=== PATIENT | male | born 1980 | race African-American/Black ===

== ENCOUNTER 2019-05-06 20:49 | Inpatient (IN) | payer OTHER ==
[2019-05-06] MEDS ORDERED: FOLIC ACID INJECTION - 1 MG, THIAMINE HCL 100 MG, MULTIVIT INJECTION ADULT 10 ML in SOD... IVPB ONE (20:59)
[2019-05-06] MEDS ORDERED: SODIUM CHLORIDE 0.9% 500 ML INFUS.BAG IV ONE ×2 (20:59→23:22)
--- NOTE | 2019-05-06 21:09 | PDOC ---
History of Present Illness <Gaye Haile - Last Filed: 05/06/19 22:39> - General History Source: Patient Exam Limitations: No Limitations - History of Present Illness Initial Comments: Jaspreet Bautista is a 38 yo M who presents to the ER after he overdosed on 18 pills of 0.5 mg haloperidol and thirty 25 mg pills of benadryl. The patient is altered and confused. He comes in and out of consciousness. He states that he was very sad before and tried to kill himself by ingesting all of those pills. He now states he is sad and wants to have his stomach pumped because he realizes what he did was stupid. The patient is not able to provide much history. <Umberto Elias - Last Filed: 05/07/19 01:25> - General Chief Complaint: Overdose Stated Complaint: OVERDOSE Time Seen by Provider: 05/06/19 20:58 Past History <Gaye Haile - Last Filed: 05/06/19 22:39> - Immunization History Immunization Up to Date: Yes - Psycho Social/Smoking Cessation Hx Smoking History: Current every day smoker Have you smoked in the past 12 months: Yes Number of Cigarettes Smoked Daily: 4 Cigars Per Day: 0 Hx Alcohol Use: No Drug/Substance Use Hx: No <Umberto Elias - Last Filed: 05/07/19 01:25> - Past Medical History Allergies/Adverse Reactions: Allergies Allergy/AdvReac Type Severity Reaction Status Date / Time No Known Allergies Allergy Verified 12/25/15 04:01 Home Medications: Ambulatory Orders Ascorbate Calcium [Vitamin C] 500 mg PO DAILY 12/25/15 Ciprofloxacin [Cipro -] 500 mg PO Q12H #10 tablet 12/25/15 Gabapentin [Neurontin] 600 mg PO TID 12/25/15 HYDROmorphone [Dilaudid -] 2 mg PO Q4H PRN 12/25/15 Haloperidol [Haldol -] 5 mg PO BID 12/25/15 Magnesium Oxide [Mag-Ox -] 400 mg PO BID 12/25/15 Melatonin 5 mg PO HS 12/25/15 Ranitidine [Zantac -] 300 mg PO HS 12/25/15 Thiamine HCl [B-1] 100 mg PO DAILY 12/25/15 Review of Systems - Review of Systems Able to Perform ROS?: No (AMS) <Umberto Elias - Last Filed: 05/07/19 01:25> *Physical Exam - Vital Signs Last Vital Signs Temp Pulse Resp BP Pulse Ox 98.1 F 98 H 24 H 00/00 L 99 05/06/19 21:01 05/06/19 22:15 05/06/19 22:15 05/06/19 22:15 05/06/19 22:15 <HaileGaye - Last Filed: 05/06/19 22:39> - Vital Signs Last Vital Signs Temp Pulse Resp BP Pulse Ox 98.1 F 100 H 14 124/85 98 05/06/19 21:01 05/06/19 21:01 05/06/19 21:01 05/06/19 21:01 05/06/19 21:01 - Physical Exam General Appearance: Yes: Apparent Distress, Moderate Distress, Intoxicated, Thin , Other (Skin is dry and hot. ) HEENT: positive: EOMI, JOSE, Other (Pupils are dilated. Face is flushed. Forehead feels warm. Dry mucous membranes. ). negative: Normal ENT Inspection, Excessive drooling Neck: positive: Trachea midline, Supple Respiratory/Chest: positive: Lungs Clear, Normal Breath Sounds Cardiovascular: positive: S1, S2, Tachycardia Vascular Pulses: Dorsalis-Pedis (R): 2+, Doralis-Pedis (L): 2+ Comments:: Patient has multiple toes amputated on right foot Gastrointestinal/Abdominal: positive: Other (Hypoactive bowel sounds). negative : Increased Bowel Sounds Male Genitalia: positive: other (Urostomy bag + Gastrostomy bag) Rectal Exam: positive: deferred Musculoskeletal: positive: Decreased Range of Motion Extremity: negative: Normal Inspection, Normal Range of Motion Integumentary: positive: Dry, Warm Neurologic: positive: Confused, Disoriented, Depressed Affect. negative: Fully Oriented, Alert, Normal Mood/Affect <Umberto Elias - Last Filed: 05/07/19 01:25> ED Treatment Course - LABORATORY CBC & Chemistry Diagram: 05/06/19 22:00 05/06/19 22:00 - ADDITIONAL ORDERS Additional order review: Laboratory Results 05/06/19 05/06/19 05/06/19 22:00 22:00 22:00 PT with INR 11.90 INR 1.01 Urine Color [place] Urine Appearance Turbid Urine pH 8.0 Ur Specific [place] 1.005 L Urine Protein 2+ H Urine Glucose (UA) Negative Urine Ketones Negative Urine Blood 2+ H Urine Nitrite Positive H Urine Bilirubin Negative Urine Urobilinogen 0.2 Ur Leukocyte Esterase 3+ H Urine WBC (Auto) 139 Urine Casts (Auto) 53 U Epithel Cells (Auto) 2.6 Urine Bacteria (Auto) 1234.2 Opiates Screen Negative Methadone Screen Negative Barbiturate Screen Negative Phencyclidine Screen Positive A* Ur Amphetamines Screen Negative MDMA (Ecstasy) Screen Negative Benzodiazepines Screen Negative Cocaine Screen Negative U Marijuana (THC) Screen Positive A* 05/06/19 22:00 RBC 4.01 MCV 84.3 MCHC 33.3 RDW 19.0 H MPV 7.6 Neutrophils % 45.6 D Lymphocytes % 36.6 D Monocytes % 15.5 H D Eosinophils % 2.0 D Basophils % 0.3 - Medications Given in the ED: ED Medications Discontinued Medications Generic Name Dose Route Start Last Admin Trade Name Emeka PRN Reason Stop Dose Admin Sodium Chloride 1,000 ml 05/06/19 20:59 05/06/19 22:13 Normal Saline - IV 05/06/19 21:00 1,000 ml ONCE ONE Administration <Gaye Haile - Last Filed: 05/06/19 22:39> - LABORATORY CBC & Chemistry Diagram: 05/06/19 22:00 05/06/19 22:00 <Umberto Elias - Last Filed: 05/07/19 01:25> Medical Decision Making - Medical Decision Making Jaspreet Bautista is a 38 yo M who presents to the ER after he overdosed on 18 pills of 0.5 mg haloperidol and thirty 25 mg pills of benadryl. The patient is altered and confused. He comes in and out of consciousness. He states that he was very sad before and tried to kill himself by ingesting all of those pills. He now states he is sad and wants to have his stomach pumped because he realizes what he did was stupid. The patient is not able to provide much history. Vital Signs Temp Pulse Resp BP Pulse Ox 98.1 F 98 H 24 H 00/00 L 99 05/06/19 21:01 05/06/19 22:15 05/06/19 22:15 05/06/19 22:15 05/06/19 22:15 MDM: Patient overdosed on benadryl and haloperidol. Interestingly he pre- emptively treated dystonic reactions with benadryl. Unfortunately he is exhibiting classic signs of an anti-cholinergic overdose from too much benadryl. Patient is delirius, has large pupils, red skin, is flushed and not sweating, has dry mucous membranes, decreased bowel sounds, and is becoming more and more tachycardic. Consult [facility] Poison control center: Reccomendations 1) supportive care 2) if agitated or confused => benzos - We have started giving 2 mg ativan 3) cool if hyperthermic 4) Physostigmine can cause seizures and lowers seizure threshold TRY TO AVOID Plan: Labs, Urine/utox, EKG, cardiac monitoring, IV hydration, benzos, admit to telemtry U-tox is positive for PCP - I suspect this is a false positive as a result of taking too much benadryl Re-assessment: Patient started becoming more tachycardic to the mid 120's and then started tensing his arms and legs likely having a dystonic reaction. It appears the patient is experiencing a dystonic reaction from the haloperidol overdose. The patient has been altered since his overdose and started vomiting. His oxygen saturation went down to the low 80's. It was evident that the patient aspirated and could no longer protect his airway. We decided to intubate the patient and put him on a midazolam drip. - 20 of etomidate and 50 of rocuronium used for RSI - Versed drip for sedation 2nd EKG: Sinus tachycardia to rate of 114. QTc not prolonged. Disposition: Admit to ICU - Spoke with ICU resident who is aware of the situation and will follow the patient. <Umberto Elias - Last Filed: 05/07/19 01:25> Discharge - Discharge Information Problems reviewed: Yes - Admission Yes <Gaye Haile - Last Filed: 05/06/19 22:39> <Umberto Elias - Last Filed: 05/07/19 01:25> - Discharge Information Clinical Impression/Diagnosis: Overdose, Suicidal behavior, Polysubstance abuse UTI (urinary tract infection) Qualifiers: Urinary tract infection type: catheter-associated UTI Encounter type: initial encounter Qualified Code(s): T83.51XA - Infection and inflammatory reaction due to indwelling urinary catheter, initial encounter Condition: Guarded
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
[2019-05-06 22:17] LABS: BASO % 0.3 % (0-2.0); HEMATOCRIT 33.8 % (35.4-49); HEMOGLOBIN 11.2 GM/dL (11.7-16.9); LYMPH % 36.6 % (8-40); MCHC 33.3 g/dl (32.0-35.9); MEAN CELL VOLUME 84.3 fl (80-96); MEAN PLT VOLUME 7.6 fl (7.5-11.1); MONO % 15.5 % (3.8-10.2); NEUT % 45.6 % (42.8-82.8); PLATELET COUNT 428 K/MM3 (134-434); RBC 4.01 M/mm3 (4.00-5.60); WHITE BLOOD COUNT 6.4 K/mm3 (4.0-10.0)
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
[2019-05-06 22:25] LABS: EPI CELLS 2.6 /HPF (0-5/HPF); HYALINE CASTS 53 /lpf (0-8); URINE APPEARANCE TURBID; URINE BACTERIA 1234.2 /hpf (NEGATIVE); URINE BILIRUBIN NEGATIVE (NEGATIVE); URINE COLOR ORANGE; URINE GLUCOSE (UA) NEGATIVE (NEGATIVE); URINE KETONE NEGATIVE (NEGATIVE); URINE LEUK ESTERASE 3+ (NEGATIVE); URINE NITRITE POSITIVE (NEGATIVE); URINE PROTEIN 2+ (NEGATIVE); URINE UROBILINOGEN 0.2 mg/dL (0.2-1.0); URINE WBC 139 /hpf (0-5)
[2019-05-06] MEDS ORDERED: CEFTRIAXONE 1 GM in DEXTROSE 5%-WATER - 50 ML IVPB ONE (22:25)
[2019-05-06 22:30] LABS: INR 1.01 (0.83-1.09); PROTHROMBIN TIME (PATIENT) 11.9 SEC (9.7-13.0)
[2019-05-06] MEDS ORDERED: LORazepam 2 MG/ML SDV VIAL ONE ×4 (22:30→23:59)
[2019-05-06] MEDS ORDERED: CEFTRIAXONE 1 GM/50 ML BAG ONE (22:30)
[2019-05-06 22:36] LABS: COCAINE, UR NEGATIVE ng/ml (CUTOFF=300); METHADONE, UR NEGATIVE ng/ml (CUTOFF=300); OPIATES, URI NEGATIVE ng/ml (CUTOFF=300); URINE AMPHETAMINES NEGATIVE ng/ml (CUTOFF=500); URINE BARBITURATES NEGATIVE ng/ml (CUTOFF=200); URINE BENZODIAZEPINES NEGATIVE ng/ml (CUTOFF=200)
[2019-05-06 22:39] LABS: PHENCYCLIDINE,URINE POSITIVE ng/ml (CUTOFF=25)
[2019-05-06 22:41] LABS: URINE RBC 0-4 /hpf (0-4); YEAST NEGATIVE (NEGATIVE)
[2019-05-06 22:49] LABS: ALBUMIN 3.5 g/dl (3.4-5.0); BILIRUBIN,TOTAL 0.4 mg/dL (0.2-1); BLOOD UREA NITROGEN 11.7 mg/dL (7-18); CALCIUM 8.9 mg/dL (8.5-10.1); CREATININE 1.2 mg/dL (0.55-1.3); TOT PROT 7.8 g/dl (6.4-8.2)
[2019-05-06] MEDS ORDERED: BENZTROPINE MESYLATE 2 MG/2 ML INJECTION IM ONE (23:30)
[2019-05-06] MEDS ORDERED: RAPID SEQUENCE INTUBATION KIT NR ONE ×2 (23:46→23:57)
[2019-05-07] MEDS ORDERED: MIDAZOLAM IN 0.9 % SOD.CHLORID 100 MG/100 ML PLAST..BAG IVPB SCH (00:15)
[2019-05-07] MEDS ORDERED: MIDAZOLAM IN 0.9 % SOD.CHLORID 1 MG/1 ML PLAST..BAG ONE ×2 (00:16→08:16)
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
[2019-05-07] MEDS ORDERED: ROCURONIUM BROMIDE 50 MG/5 ML VIAL IV ONE (00:18)
[2019-05-07] MEDS ORDERED: ETOMIDATE 40 MG/20 ML VIAL IVPUSH ONE (00:18)
[2019-05-07] MEDS ORDERED: MIDAZOLAM 100 MG in SODIUM CHLORIDE 100 ML IVPB SCH (00:30)
[2019-05-07 02:31] LABS: ARTERIAL BLD GAS O2 SATURATION 97.8 % (95-98); ARTERIAL BLOOD GAS BASE EXCESS -2.8 meq/l (-2-2); ARTERIAL BLOOD GAS PCO2 52.6 mmHg (35-45); ARTERIAL BLOOD GAS pH 7.28 (7.35-7.45)
[2019-05-07 02:35] LABS: ALLENS TEST POSITIVE; ARTERIAL BLOOD GAS PO2 205 mmHg (80-100)
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
[2019-05-07] MEDS ORDERED: PIPERACILLIN/TAZOB 4.5 GM 4.5 GM in DEXTROSE 5%-WATER 100 ML IVPB SCH (03:00)
[2019-05-07] MEDS: PROPOFOL 1,000,000 MCG/100 ML VIAL IVPB SCH (03:00)
[2019-05-07] MEDS ORDERED: SODIUM CHLORIDE 1,000 ML IV SCH (03:30)
[2019-05-07 03:38] LABS: PHOSPHOROUS 5.3 mg/dL (2.5-4.9)
[2019-05-07] MEDS ORDERED: fentaNYL CITRATE 250 MCG/5 ML VIAL ONE (06:06)
[2019-05-07] MEDS ORDERED: FENTANYL INJECTION 500 MCG in DEXTROSE 5%-WATER - 90 ML IVPB SCH (06:15)
[2019-05-07] MEDS ORDERED: PIPERACILLIN/TAZOBACTAM 4.5 GM VIAL IVPB ONE ×2 (06:29→08:17)
[2019-05-07] MEDS ORDERED: DEXTROSE 5%-WATER - 50 ML IVPB ONE ×2 (06:29→08:17)
[2019-05-07] MEDS: THIAMINE HCL 200 MG/2 ML VIAL IVPB SCH ×3 (06:31→17:40)
[2019-05-07] MEDS: FENTANYL INJECTION 500 MCG in DEXTROSE 5%-WATER - 90 ML IVPB SCH (06:32)
[2019-05-07] MEDS: LACTATED RINGERS SOLUTION 1,000 ML/1,000 ML INFUS.BAG IV SCH (06:33)
[2019-05-07] MEDS: PIPERACILLIN/TAZOB 4.5 GM 4.5 GM in DEXTROSE 5%-WATER - 50 ML IVPB SCH ×2 (06:33→08:19)
[2019-05-07 07:29] LABS: BASO % 0.2 % (0-2.0); EOS % 0.1 % (0-4.5); HEMATOCRIT 30.4 % (35.4-49); HEMOGLOBIN 9.8 GM/dL (11.7-16.9); MCH 27.5 pg (25.7-33.7); MCHC 32.4 g/dl (32.0-35.9); MEAN CELL VOLUME 84.9 fl (80-96); MEAN PLT VOLUME 7.5 fl (7.5-11.1); NEUT % 87.7 % (42.8-82.8); PLATELET COUNT 360 K/MM3 (134-434); RBC 3.58 M/mm3 (4.00-5.60); RDW 18.9 % (11.9-15.9); WHITE BLOOD COUNT 24.1 K/mm3 (4.0-10.0)
[2019-05-07 07:46] LABS: BILIRUBIN,TOTAL 0.4 mg/dL (0.2-1); BLOOD UREA NITROGEN 9.7 mg/dL (7-18); CALCIUM 8.2 mg/dL (8.5-10.1); POTASSIUM 3.9 mmol/L (3.5-5.1); TOT PROT 6.4 g/dl (6.4-8.2)
[2019-05-07 08:44] LABS: ALLENS TEST POSITIVE
[2019-05-07 08:49] LABS: ARTERIAL BLD GAS O2 SATURATION 98.6 % (95-98); ARTERIAL BLOOD GAS BASE EXCESS 0.4 meq/l (-2-2); ARTERIAL BLOOD GAS PCO2 41.1 mmHg (35-45); ARTERIAL BLOOD GAS PO2 463 mmHg (80-100)
[2019-05-07] MEDS ORDERED: PT OWN MED DRAWER 7, Y5N ONE (09:42)
[2019-05-07 09:51] LABS: OVALOCYTE 1+; PLATELET ESTIMATE ADEQUATE
[2019-05-07] MEDS ORDERED: PANTOPRAZOLE SODIUM 40 MG VIAL IVPUSH SCH (10:00)
[2019-05-07] MEDS ORDERED: ENOXAPARIN NA (PORCINE) 40 MG/0.4 ML DISP.SYRIN SQ SCH (10:15)
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
--- NOTE | 2019-05-07 10:41 | PN ---
Teaching Attending Note Name of Resident: Antoine Moses ATTENDING PHYSICIAN STATEMENT I saw and evaluated the patient. I reviewed the resident's note and discussed the case with the resident. I agree with the resident's findings and plan as documented. SUBJECTIVE: Pt seen and examined in the ICU. Remains intubated, sedated on propofol, versed and fentanyl gtts. OBJECTIVE: Vital Signs Period Temp Pulse Resp BP Sys/Neff Pulse Ox Last 24 Hr 97.5 F-98.1 F 98-122 12-39 00-157/00-117 98-100 Intake & Output 05/04/19 05/05/19 05/06/19 05/07/19 23:59 23:59 23:59 23:59 Output Total 1100 Balance -1100 Weight 68.039 kg 59.1 kg Gen: intubated, sedated Heart: RRR Lung: decreased breath sounds at the bases Abd: soft, nontender, +ostomy, nephrostomy Ext: no edema CBC, BMP 05/07/19 06:10 05/07/19 06:10 Active Medications Chlorhexidine Gluconate (Hibiclens For Decolonization -) 1 applic TP HS MELISSA Enoxaparin Sodium (Lovenox -) 40 mg SQ DAILY MELISSA Midazolam HCl 100 mg/ Sodium (Chloride) 100 mls @ 10 mls/hr IVPB TITR MELISSA; Protocol Stop: 05/08/19 00:29 Last Admin: 05/07/19 00:41 Dose: 10 mg/hr, 10 mls/hr Piperacillin Sod/Tazobactam (Sod 4.5 gm/ Dextrose) 50 mls @ 100 mls/hr IVPB Q6H -IV MELISSA Stop: 05/07/19 21:29 Last Admin: 05/07/19 08:19 Dose: 100 mls/hr Propofol (Diprivan -) 1,000,000 mcg in 100 mls @ 2.041 mls/hr IVPB TITR MELISSA; Protocol Last Titration: 05/07/19 06:37 Dose: 50 mcg/kg/min, 20.412 mls/hr Lactated Ringer's (Lactated Ringers Solution) 1,000 ml in 1,000 mls @ 150 mls/ hr IV ASDIR MELISSA Last Admin: 05/07/19 06:33 Dose: 150 mls/hr Fentanyl 500 mcg/ Dextrose 100 mls @ 2 mls/hr IVPB TITR MELISSA; Protocol Last Admin: 05/07/19 06:32 Dose: 25 mcg/hr, 5 mls/hr Mupirocin (Bactroban Ointment (For Decolonization) -) 1 applic NS BID [facility] Stop: 05/12/19 09:59 Pantoprazole Sodium (Protonix Iv) 40 mg IVPUSH DAILY [facility] Last Admin: 05/07/19 09:39 Dose: 40 mg Thiamine HCl (Vitamin B1 Injection -) 200 mg IVPB Q8H-IV MELISSA Last Admin: 05/07/19 09:50 Dose: 200 mg ASSESSMENT AND PLAN: Drug Overdose Suicide Attempt Acute Respiratory Failure UTI Anemia - monitor EKG/QTc - IVF - trend CPK - continue antibiotics - f/u cultures - hold sedation to assess mental status - spontaneous breathing trials as tolerated when mental status improved - DVT prophylaxis - continue ICU monitoring critical care time spent in reviewing chart, evaluating patient and formulating plan 35 min
--- NOTE | 2019-05-07 12:08 | PN ---
Progress Note (short form) - Note Progress Note: ID CONSULT DICTATED RESP FAILURE S/P DRUG OVERDOSE PROBABLE ASPIRATION LEUKOCYTOSIS R/O SEPSIS UTI S/P PERCUTANEOUS NEPHROSTOMY ?? OBSTRUCTIVE UROPATHY PARAPLEGIA AWAIT C/S EMPIRIC CEFTRIAXONE
--- NOTE | 2019-05-07 13:40 | CON.PSY ---
Psychiatry Consult Chief Complaint: 38 Year old Male admitted thru ER for acute overdose of Psych meds. Patient is intubated at this time. Unablke to engage in any conversation. - Previous Psychiatric Treatment Outpatient: Less than 6 mos ago Inpatient: None - Previous Substance Abuse Treatment Outpatient: None Inpatient: None - Reason for Previous Treatment Reason for Previous Treatment: Major Depression - Current Medications Current Medications: Active Medications Chlorhexidine Gluconate (Hibiclens For Decolonization -) 1 applic TP HS MELISSA Enoxaparin Sodium (Lovenox -) 40 mg SQ DAILY MELISSA Midazolam HCl 100 mg/ Sodium (Chloride) 100 mls @ 10 mls/hr IVPB TITR MELISSA; Protocol Stop: 05/08/19 00:29 Last Admin: 05/07/19 00:41 Dose: 10 mg/hr, 10 mls/hr Propofol (Diprivan -) 1,000,000 mcg in 100 mls @ 2.041 mls/hr IVPB TITR MELISSA; Protocol Last Titration: 05/07/19 06:37 Dose: 50 mcg/kg/min, 20.412 mls/hr Lactated Ringer's (Lactated Ringers Solution) 1,000 ml in 1,000 mls @ 150 mls/ hr IV ASDIR MELISSA Last Admin: 05/07/19 06:33 Dose: 150 mls/hr Fentanyl 500 mcg/ Dextrose 100 mls @ 2 mls/hr IVPB TITR MELISSA; Protocol Last Admin: 05/07/19 06:32 Dose: 25 mcg/hr, 5 mls/hr Ceftriaxone Sodium 2 gm/ (Dextrose) 100 mls @ 200 mls/hr IVPB DAILY MELISSA; Protocol Mupirocin (Bactroban Ointment (For Decolonization) -) 1 applic NS BID MELISSA Stop: 05/12/19 09:59 Pantoprazole Sodium (Protonix Iv) 40 mg IVPUSH DAILY MELISSA Last Admin: 05/07/19 09:39 Dose: 40 mg Thiamine HCl (Vitamin B1 Injection -) 200 mg IVPB Q8H-IV MELISSA Last Admin: 05/07/19 09:50 Dose: 200 mg - Allergies Allergies: Allergies Allergy/AdvReac Type Severity Reaction Status Date / Time No Known Allergies Allergy Verified 12/25/15 04:01 - Current Living Status Usual Living Arrangement: Alone - Current Mental Status Evaluation Appearance: Disheveled Attitude: Other - Affect Affect: Other - Speech/Language Expressive: Incoherent - Psychomotor Activity Psychomotor Activity: Slowed - Cognition Attention: Diminished Memory, Short Term: 0/3 Memory, Remote with Promptin/3 - Concentration Serial Sevens Intact: No Simple Calculations Intact: No - Abstraction Proverb Interpretation: Impaired Judgement: Moderately Impaired - Insight Insight: Impaired - Impulse Control Impulse Control: Moderately Impaired - Suicidal Ideation Suicidal Ideation: Yes (severe drug overdose.) - Homicidal Ideation Homicidal Ideation: No Assessment/Plan 1) continue with 1:1. 2) Patient might need In Patient Psych admission when medically stable.
[2019-05-07] MEDS ORDERED: DEXTROSE 5%-WATER 100 ML IVPB ONE (14:21)
[2019-05-07] MEDS: CEFTRIAXONE 2 GM in DEXTROSE 5%-WATER 100 ML IVPB SCH (14:29)
[2019-05-07] MEDS: MUPIROCIN 2% TOPICAL OINTMENT FOR DECOLONIZATION NS SCH ×2 (14:29→23:42)
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
--- NOTE | 2019-05-07 16:45 | EKG ---
Test Reason : Blood Pressure : / mmHG Vent. Rate : 091 BPM Atrial Rate : 091 BPM P-R Int : 116 ms QRS Dur : 080 ms QT Int : 392 ms P-R-T Axes : 078 032 039 degrees QTc Int : 482 ms NORMAL SINUS RHYTHM PROLONGED QT ABNORMAL ECG WHEN COMPARED WITH ECG OF 07-MAY-2019 03:39, NO SIGNIFICANT CHANGE WAS FOUND Confirmed by ROMAN FLORES MD ([id number]) on 05/07/2019 4:44:57 PM Referred By: Heriberto BAILEY Confirmed By:ROMAN FLORES MD
--- NOTE | 2019-05-07 16:47 | EKG ---
Test Reason : Blood Pressure : / mmHG Vent. Rate : 120 BPM Atrial Rate : 120 BPM P-R Int : 116 ms QRS Dur : 068 ms QT Int : 350 ms P-R-T Axes : 080 063 038 degrees QTc Int : 494 ms SINUS TACHYCARDIA OTHERWISE NORMAL ECG WHEN COMPARED WITH ECG OF 07-MAY-2019 00:20, NO SIGNIFICANT CHANGE WAS FOUND Confirmed by ROMAN FLORES MD ([id number]) on 05/07/2019 4:47:11 PM Referred By: Confirmed By:ROMAN FLORES MD
--- NOTE | 2019-05-07 16:48 | EKG ---
Test Reason : Blood Pressure : / mmHG Vent. Rate : 114 BPM Atrial Rate : 114 BPM P-R Int : 134 ms QRS Dur : 084 ms QT Int : 362 ms P-R-T Axes : 083 066 053 degrees QTc Int : 498 ms SINUS TACHYCARDIA MODERATE VOLTAGE CRITERIA FOR LVH, MAY BE NORMAL VARIANT BORDERLINE ECG WHEN COMPARED WITH ECG OF 06-MAY-2019 21:27, Confirmed by ROMAN FLORES MD ([id number]) on 05/07/2019 4:47:39 PM Referred By: Confirmed By:ROMAN FLORES MD
--- NOTE | 2019-05-07 16:48 | EKG ---
Test Reason : Blood Pressure : / mmHG Vent. Rate : 108 BPM Atrial Rate : 108 BPM P-R Int : 122 ms QRS Dur : 080 ms QT Int : 362 ms P-R-T Axes : 075 061 046 degrees QTc Int : 485 ms SINUS TACHYCARDIA POSSIBLE LEFT ATRIAL ENLARGEMENT BORDERLINE ECG NO PREVIOUS ECGS AVAILABLE Confirmed by ROMAN FLORES MD ([id number]) on 05/07/2019 4:48:05 PM Referred By: Confirmed By:ROMAN FLORES MD
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
[2019-05-07 19:42] LABS: BASO % 0.3 % (0-2.0); EOS % 0.2 % (0-4.5); HEMATOCRIT 31.3 % (35.4-49); HEMOGLOBIN 9.9 GM/dL (11.7-16.9); LYMPH % 5.9 % (8-40); MCH 27.3 pg (25.7-33.7); MCHC 31.6 g/dl (32.0-35.9); MEAN CELL VOLUME 86.4 fl (80-96); MEAN PLT VOLUME 7.5 fl (7.5-11.1); MONO % 4.3 % (3.8-10.2); NEUT % 89.3 % (42.8-82.8); PLATELET COUNT 354 K/MM3 (134-434); RBC 3.63 M/mm3 (4.00-5.60); RDW 19.6 % (11.9-15.9); WHITE BLOOD COUNT 24.9 K/mm3 (4.0-10.0)
[2019-05-07 19:49] LABS: EPI CELLS 1.4 /HPF (0-5/HPF); HYALINE CASTS 4 /lpf (0-8); PH,URINE 5.5 (5.0-8.0); URINE APPEARANCE TURBID; URINE BACTERIA 0.3 /hpf (NEGATIVE); URINE BILIRUBIN NEGATIVE (NEGATIVE); URINE COLOR YELLOW; URINE GLUCOSE (UA) NEGATIVE (NEGATIVE); URINE KETONE 1+ (NEGATIVE); URINE LEUK ESTERASE NEGATIVE (NEGATIVE); URINE NITRITE NEGATIVE (NEGATIVE); URINE PROTEIN TRACE (NEGATIVE); URINE RBC 35 /hpf (0-4); URINE UROBILINOGEN 0.2 mg/dL (0.2-1.0); URINE WBC 5 /hpf (0-5)
[2019-05-07 20:07] LABS: ALBUMIN 2.7 g/dl (3.4-5.0); BILIRUBIN,TOTAL 0.3 mg/dL (0.2-1); BLOOD UREA NITROGEN 9.7 mg/dL (7-18); CALCIUM 8.2 mg/dL (8.5-10.1); POTASSIUM 3.9 mmol/L (3.5-5.1); TOT PROT 6.1 g/dl (6.4-8.2)
[2019-05-07] MEDS: PANTOPRAZOLE SODIUM 40 MG VIAL IVPUSH SCH (22:01)
[2019-05-07] MEDS: CHLORHEXIDINE GLUCONATE 4% CLEANSER FOR DECOLONIZATION TP SCH (22:01)
[2019-05-07 22:30] LABS: ANISOCYTOSIS 1+; MACROCYTOSIS 1+; PLATELET ESTIMATE ADEQUATE
[2019-05-08] MEDS ORDERED: PT OWN MED DRAWER 7, Y5N ONE ×2 (00:51→09:59)
[2019-05-08] MEDS: THIAMINE HCL 200 MG/2 ML VIAL IVPB SCH ×3 (02:20→17:37)
[2019-05-08] MEDS: PROPOFOL 1,000,000 MCG/100 ML VIAL IVPB SCH ×2 (02:20→09:24)
[2019-05-08] MEDS ORDERED: fentaNYL CITRATE 250 MCG/5 ML VIAL ONE (04:51)
[2019-05-08] MEDS ORDERED: MIDAZOLAM IN 0.9 % SOD.CHLORID 1 MG/1 ML PLAST..BAG ONE (04:52)
[2019-05-08] MEDS: FENTANYL INJECTION 500 MCG in DEXTROSE 5%-WATER - 90 ML IVPB SCH (06:21)
[2019-05-08] MEDS ORDERED: FENTANYL INJECTION 500 MCG in SODIUM CHLORIDE 90 ML IVPB SCH (06:30)
[2019-05-08] MEDS ORDERED: MIDAZOLAM 100 MG in SODIUM CHLORIDE 100 ML IVPB SCH (06:45)
[2019-05-08] MEDS: LACTATED RINGERS SOLUTION 1,000 ML/1,000 ML INFUS.BAG IV SCH (07:00)
[2019-05-08] MEDS ORDERED: DEXTROSE 50%-WATER - 25 GM/50 ML VIAL IVPUSH ONE (07:20)
[2019-05-08] MEDS ORDERED: DEXTROSE 50%-WATER - 25 GM/50 ML VIAL ONE (07:26)
[2019-05-08] MEDS ORDERED: DEXTROSE 5%-WATER 100 ML IVPB ONE (09:45)
[2019-05-08] MEDS: MUPIROCIN 2% TOPICAL OINTMENT FOR DECOLONIZATION NS SCH ×2 (09:49→21:22)
[2019-05-08] MEDS: PANTOPRAZOLE SODIUM 40 MG VIAL IVPUSH SCH ×2 (09:49→21:23)
[2019-05-08] MEDS: CEFTRIAXONE 2 GM in DEXTROSE 5%-WATER 100 ML IVPB SCH (09:49)
[2019-05-08 10:50] LABS: BASO % 0.2 % (0-2.0); EOS % 1.6 % (0-4.5); HEMATOCRIT 31.2 % (35.4-49); HEMOGLOBIN 9.9 GM/dL (11.7-16.9); MCH 27.3 pg (25.7-33.7); MCHC 31.8 g/dl (32.0-35.9); MEAN CELL VOLUME 85.9 fl (80-96); MEAN PLT VOLUME 7.2 fl (7.5-11.1); MONO % 9.1 % (3.8-10.2); NEUT % 78.1 % (42.8-82.8); PLATELET COUNT 359 K/MM3 (134-434); RBC 3.64 M/mm3 (4.00-5.60); RDW 19.6 % (11.9-15.9); WHITE BLOOD COUNT 13.7 K/mm3 (4.0-10.0)
--- NOTE | 2019-05-08 10:57 | PN ---
Progress Note, Physician History of Present Illness: SEDATED ON VENTILATOR AFEBRILE - Current Medication List Current Medications: Active Medications Chlorhexidine Gluconate (Hibiclens For Decolonization -) 1 applic TP HS MELISSA Last Admin: 05/07/19 22:01 Dose: 1 applic Propofol (Diprivan -) 1,000,000 mcg in 100 mls @ 2.041 mls/hr IVPB TITR MELISSA; Protocol Last Admin: 05/08/19 09:24 Dose: 36.74 mcg/kg/min, 14.999 mls/hr Lactated Ringer's (Lactated Ringers Solution) 1,000 ml in 1,000 mls @ 150 mls/ hr IV ASDIR MELISSA Last Admin: 05/08/19 07:00 Dose: 150 mls/hr Ceftriaxone Sodium 2 gm/ (Dextrose) 100 mls @ 200 mls/hr IVPB DAILY MELISSA; Protocol Last Admin: 05/08/19 09:49 Dose: 200 mls/hr Fentanyl 500 mcg/ Sodium (Chloride) 100 mls @ 2 mls/hr IVPB TITR MELISSA; Protocol Last Admin: 05/08/19 06:41 Dose: 25 mcg/hr, 5 mls/hr Midazolam HCl 100 mg/ Sodium (Chloride) 100 mls @ 1 mls/hr IVPB TITR MELISSA; Protocol Last Admin: 05/08/19 06:43 Dose: 5 mg/hr, 5 mls/hr Mupirocin (Bactroban Ointment (For Decolonization) -) 1 applic NS BID [facility] Stop: 05/12/19 09:59 Last Admin: 05/08/19 09:49 Dose: 1 applic Pantoprazole Sodium (Protonix Iv) 40 mg IVPUSH BID MELISSA Last Admin: 05/08/19 09:49 Dose: 40 mg Thiamine HCl (Vitamin B1 Injection -) 200 mg IVPB Q8H-IV MELISSA Last Admin: 05/08/19 10:00 Dose: 200 mg - Objective Vital Signs: Vital Signs Temperature 96.5 F L 05/08/19 06:00 Pulse Rate 70 05/08/19 08:00 Respiratory Rate 05/08/19 08:22 Blood Pressure 144/98 05/08/19 08:00 O2 Sat by Pulse Oximetry (%) 100 05/07/19 22:00 Constitutional: Yes: No Distress, Thin Cardiovascular: Yes: Regular Rate and Rhythm, S1, S2 Respiratory: Yes: Mechanically Ventilated Gastrointestinal: Yes: Normal Bowel Sounds, Soft. No: Tenderness Peripheral Pulses WNL: No Labs: INR, PTT INR 1.01 (0.83-1.09) 05/06/19 22:00 Assessment/Plan RESPIRATORY FAILURE R/O ASPIRATION PNEUMONIA S/P DRUG OVERDOSE LEUKOCYTOSIS UTI S/P PERCUTANEOUS NEPHROSTOMY AWAIT C/S CONTINUE EMPIRIC CEFTRIAXONE
[2019-05-08 11:11] LABS: ALBUMIN 2.3 g/dl (3.4-5.0); BILIRUBIN,TOTAL 0.3 mg/dL (0.2-1); BLOOD UREA NITROGEN 11.9 mg/dL (7-18); CALCIUM 8.1 mg/dL (8.5-10.1); POTASSIUM 3.5 mmol/L (3.5-5.1); TOT PROT 5.6 g/dl (6.4-8.2)
--- NOTE | 2019-05-08 11:12 | PN ---
Teaching Attending Note Name of Resident: Maximiliano Garcia ATTENDING PHYSICIAN STATEMENT I saw and evaluated the patient. I reviewed the resident's note and discussed the case with the resident. I agree with the resident's findings and plan as documented. SUBJECTIVE: Pt seen and examined in the ICU. Remains intubated, sedated. QTc wnl. OBJECTIVE: Vital Signs Period Temp Pulse Resp BP Sys/Neff Pulse Ox Last 24 Hr 96.5 F-978 F 67-112 16-40 86-144/49-98 100-100 Intake & Output 05/05/19 05/06/19 05/07/19 05/08/19 23:59 23:59 23:59 23:59 Intake Total 2600 1425 Output Total 2200 200 Balance 400 1225 Weight 68.039 kg 59.1 kg 52.39 kg Gen: intubated, sedated Heart: RRR Lung: decreased breath sounds at the bases Abd: soft, nontender, +ostomy, nephrostomy Ext: no edema CBC, BMP 05/08/19 10:36 05/08/19 10:36 Active Medications Chlorhexidine Gluconate (Hibiclens For Decolonization -) 1 applic TP HS MELISSA Last Admin: 05/07/19 22:01 Dose: 1 applic Propofol (Diprivan -) 1,000,000 mcg in 100 mls @ 2.041 mls/hr IVPB TITR MELISSA; Protocol Last Admin: 05/08/19 09:24 Dose: 36.74 mcg/kg/min, 14.999 mls/hr Lactated Ringer's (Lactated Ringers Solution) 1,000 ml in 1,000 mls @ 150 mls/ hr IV ASDIR MELISSA Last Admin: 05/08/19 07:00 Dose: 150 mls/hr Ceftriaxone Sodium 2 gm/ (Dextrose) 100 mls @ 200 mls/hr IVPB DAILY MELISSA; Protocol Last Admin: 05/08/19 09:49 Dose: 200 mls/hr Fentanyl 500 mcg/ Sodium (Chloride) 100 mls @ 2 mls/hr IVPB TITR MELISSA; Protocol Last Admin: 05/08/19 06:41 Dose: 25 mcg/hr, 5 mls/hr Midazolam HCl 100 mg/ Sodium (Chloride) 100 mls @ 1 mls/hr IVPB TITR MELISSA; Protocol Last Admin: 09/30/19 06:43 Dose: 5 mg/hr, 5 mls/hr Mupirocin (Bactroban Ointment (For Decolonization) -) 1 applic NS BID [facility] Stop: 05/12/19 09:59 Last Admin: 05/08/19 09:49 Dose: 1 applic Pantoprazole Sodium (Protonix Iv) 40 mg IVPUSH BID [facility] Last Admin: 05/08/19 09:49 Dose: 40 mg Thiamine HCl (Vitamin B1 Injection -) 200 mg IVPB Q8H-IV [facility] Last Admin: 05/08/19 10:00 Dose: 200 mg ASSESSMENT AND PLAN: Drug Overdose Suicide Attempt Acute Respiratory Failure UTI Anemia - monitor EKG/QTc - IVF - trend CPK - continue antibiotics - f/u cultures - hold sedation to assess mental status - spontaneous breathing trials as tolerated when mental status improved - DVT prophylaxis - continue ICU monitoring critical care time spent in reviewing chart, evaluating patient and formulating plan 35 min
--- NOTE | 2019-05-08 13:12 | EKG ---
Test Reason : Blood Pressure : / mmHG Vent. Rate : 071 BPM Atrial Rate : 071 BPM P-R Int : 138 ms QRS Dur : 092 ms QT Int : 458 ms P-R-T Axes : 076 053 042 degrees QTc Int : 497 ms NORMAL SINUS RHYTHM NONSPECIFIC ST ABNORMALITY PROLONGED QT ABNORMAL ECG WHEN COMPARED WITH ECG OF 08-MAY-2019 01:06, NO SIGNIFICANT CHANGE WAS FOUND Confirmed by LEANDRO PAL MD ([id number]) on 05/08/2019 1:12:25 PM Referred By: JENN GRAF Confirmed By:LEANDRO PAL MD
--- NOTE | 2019-05-08 13:13 | EKG ---
Test Reason : Blood Pressure : / mmHG Vent. Rate : 076 BPM Atrial Rate : 076 BPM P-R Int : 128 ms QRS Dur : 084 ms QT Int : 446 ms P-R-T Axes : 076 053 047 degrees QTc Int : 501 ms NORMAL SINUS RHYTHM PROLONGED QT ABNORMAL ECG WHEN COMPARED WITH ECG OF 07-MAY-2019 10:44, NO SIGNIFICANT CHANGE WAS FOUND Confirmed by LEANDRO PAL MD ([id number]) on 05/08/2019 1:13:31 PM Referred By: Confirmed By:LEANDRO PAL MD
[2019-05-08 13:19] VITALS: BMI 20.3
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
[2019-05-08] MEDS ORDERED: HALOPERIDOL LACTATE 5 MG/ML IM ONE (16:03)
[2019-05-08] MEDS ORDERED: HALOPERIDOL LACTATE 5 MG/ML ONE (16:04)
[2019-05-08] MEDS ORDERED: LORazepam 2 MG/ML SDV VIAL IM ONE (16:13)
--- NOTE | 2019-05-08 16:21 | PN ---
Progress Note (short form) - Note Progress Note: condition 10 was called. Pt was seen agitated, walking out of bed, pulling out IV lines and screaming. Pt is grabbing and trying to get violent with staff in ICU ( Psych ) consulted and recommended 2mg haldol IM. Primary team notified- they contacted poison control. poison control recommended Benzos -will get repeat EKG -continue 1:1 monitoring -transfer to inpatient psych once pt medically optimized
[2019-05-08] MEDS ORDERED: LORazepam 2 MG/ML SDV VIAL IVPUSH PRN (16:29)
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
--- NOTE | 2019-05-08 17:01 | PN ---
Progress Note (short form) - Note Progress Note: patient seen for Psych follow up; MS; awake, alert, very angry, aggressive, Paranoid, grandiosed. Pulling on Restrained, yellin out I will Kill my self If I want, you cant stop me. Veery Hostile and displaying severe impulse control and poor Judgement. REC; 1) Transfer to Psych unit when Medically stable. 2) Patient is being treated at [facility] by .
[2019-05-08] MEDS ORDERED: MAGNESIUM SULF 50% (8.12 MEQ/2 ML-1 GM VIAL) IVPB ONE (17:15)
[2019-05-08] MEDS ORDERED: MAGNESIUM OXIDE 400 MG TABLET (FP) PO ONE (17:28)
[2019-05-08] MEDS: CHLORHEXIDINE GLUCONATE 4% CLEANSER FOR DECOLONIZATION TP SCH (21:23)
[2019-05-09] MEDS: LORazepam 2 MG/ML SDV VIAL IM PRN ×3 (00:21→15:56)
[2019-05-09] MEDS: THIAMINE HCL 200 MG/2 ML VIAL IVPB SCH ×2 (01:03→10:00)
[2019-05-09 06:11] LABS: BASO % 0.4 % (0-2.0); EOS % 0.2 % (0-4.5); HEMATOCRIT 30.4 % (35.4-49); HEMOGLOBIN 10.1 GM/dL (11.7-16.9); MCH 27.8 pg (25.7-33.7); MCHC 33.3 g/dl (32.0-35.9); MEAN CELL VOLUME 83.5 fl (80-96); MEAN PLT VOLUME 7.3 fl (7.5-11.1); MONO % 7.9 % (3.8-10.2); NEUT % 81.5 % (42.8-82.8); PLATELET COUNT 378 K/MM3 (134-434); RBC 3.64 M/mm3 (4.00-5.60); RDW 19.5 % (11.9-15.9); WHITE BLOOD COUNT 13.5 K/mm3 (4.0-10.0)
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
[2019-05-09 06:43] LABS: BLOOD UREA NITROGEN 6.6 mg/dL (7-18); CALCIUM 8.1 mg/dL (8.5-10.1); CREATININE 0.9 mg/dL (0.55-1.3); POTASSIUM 3.3 mmol/L (3.5-5.1)
[2019-05-09] MEDS ORDERED: POTASSIUM CHLORIDE TABS 20 MEQ TABLET.ER (FP) PO ONE (08:06)
[2019-05-09] MEDS: MUPIROCIN 2% TOPICAL OINTMENT FOR DECOLONIZATION NS SCH (10:00)
[2019-05-09] MEDS: CEFTRIAXONE 2 GM in DEXTROSE 5%-WATER 100 ML IVPB SCH (10:00)
[2019-05-09] MEDS: PANTOPRAZOLE SODIUM 40 MG VIAL IVPUSH SCH (10:00)
[2019-05-09] MEDS ORDERED: PANTOPRAZOLE 40 MG TABLET (FP) PO ONE ×2 (11:04→12:10)
[2019-05-09] MEDS ORDERED: THIAMINE HCL 100 MG TABLET (FP) PO SCH (11:15)
--- NOTE | 2019-05-09 11:21 | PN ---
Teaching Attending Note Name of Resident: Antoine Moses ATTENDING PHYSICIAN STATEMENT I saw and evaluated the patient. I reviewed the resident's note and discussed the case with the resident. I agree with the resident's findings and plan as documented. SUBJECTIVE: Pt seen and examined in the ICU. Extubated yesterday without incident. Agitated , combative towards staff. Reports auditory hallucinations. OBJECTIVE: Vital Signs Period Temp Pulse Resp BP Sys/Neff Pulse Ox Last 24 Hr 98.1 F-98.2 F 74-104 17-25 118-148/77-94 Intake & Output 05/06/19 05/07/19 05/08/19 05/09/19 23:59 23:59 23:59 23:59 Intake Total 2600 1625 100 Output Total 2200 550 Balance 400 1075 100 Weight 68.039 kg 59.1 kg 52.163 kg Gen: agitated Heart: RRR Lung: decreased breath sounds at the bases Abd: soft, nontender Ext: no edema CBC, BMP 05/09/19 05:45 05/09/19 05:45 Active Medications Chlorhexidine Gluconate (Hibiclens For Decolonization -) 1 applic TP HS MELISSA Last Admin: 05/08/19 21:23 Dose: Not Given Lactated Ringer's (Lactated Ringers Solution) 1,000 ml in 1,000 mls @ 150 mls/ hr IV ASDIR MELISSA Last Admin: 05/08/19 07:00 Dose: 150 mls/hr Ceftriaxone Sodium 2 gm/ (Dextrose) 100 mls @ 200 mls/hr IVPB DAILY MELISSA; Protocol Last Admin: 05/08/19 09:49 Dose: 200 mls/hr Lorazepam (Ativan Injection -) 2 mg IM Q4H PRN PRN Reason: AGITATION Last Admin: 05/09/19 04:16 Dose: 2 mg Mupirocin (Bactroban Ointment (For Decolonization) -) 1 applic NS BID MELISSA Stop: 05/12/19 09:59 Last Admin: 05/08/19 21:22 Dose: Not Given Pantoprazole Sodium (Protonix -) 40 mg PO BID MELISSA Thiamine HCl (Vitamin B1 -) 200 mg PO Q8H MELISSA ASSESSMENT AND PLAN: Drug Overdose Suicide Attempt s/p Acute Respiratory Failure UTI Anemia - continue antibiotics per ID - f/u cultures - PO as tolerated - DVT prophylaxis - can monitor on floor
[2019-05-09] MEDS: LACTATED RINGERS SOLUTION 1,000 ML/1,000 ML INFUS.BAG IV SCH (12:08)
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
[2019-05-09] MEDS ORDERED: LORazepam 2 MG/ML SDV VIAL IM PRN (20:45)
[2019-05-09] MEDS: PANTOPRAZOLE 40 MG TABLET (FP) PO SCH (22:43)
[2019-05-09] MEDS: THIAMINE HCL 100 MG TABLET (FP) PO SCH (22:43)
[2019-05-10] MEDS ORDERED: CEFTRIAXONE 2 GM in DEXTROSE 5%-WATER 100 ML IVPB SCH (10:00)
[2019-05-10] MEDS ORDERED: DEXTROSE 5%-WATER 100 ML IVPB ONE (10:28)
[2019-05-10] MEDS: PANTOPRAZOLE 40 MG TABLET (FP) PO SCH ×2 (10:34→21:44)
[2019-05-10] MEDS: THIAMINE HCL 100 MG TABLET (FP) PO SCH ×2 (10:34→21:44)
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
[2019-05-10] MEDS: AMOX TR/POT CLAV 500MG/125MG TABLETS (FP) PO SCH ×2 (15:52→17:40)
[2019-05-10] MEDS: LORazepam 1 MG TABLET PO PRN (15:52)
[2019-05-10] MEDS ORDERED: LORazepam 2 MG/ML SDV VIAL IM ONE (16:01)
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
[2019-05-10] MEDS ORDERED: ACETAMINOPHEN 325 MG TABLET (FP) PO PRN (18:22)
[2019-05-10] MEDS: LORazepam 2 MG/ML SDV VIAL IVPUSH PRN (21:25)
[2019-05-11] MEDS: LORazepam 1 MG TABLET PO PRN (08:39)
[2019-05-11] MEDS: AMOX TR/POT CLAV 500MG/125MG TABLETS (FP) PO SCH ×2 (08:39→16:37)
[2019-05-11] MEDS: THIAMINE HCL 100 MG TABLET (FP) PO SCH ×2 (10:14→21:32)
[2019-05-11] MEDS: PANTOPRAZOLE 40 MG TABLET (FP) PO SCH ×2 (10:14→21:32)
--- NOTE | 2019-05-11 12:29 | PN ---
Mental Health Exam - Mental Status Exam Alert and Oriented to: Time, Place, Person Cognitive Function: Grossly Intact Patient Appearance: Unkempt Mood: Angry Affect: Labile Patient Behavior: Aggressive Speech Pattern: Rambling Voice Loudness: Normal Thought Process: Intact Thought Disorder: Not Present Hallucinations: Denies Suicidal Ideation: None Homicidal Ideation: Denies Insight/Judgement: Poor Sleep: Poorly Appetite: Poor Muscle strength/Tone: Normal Gait/Station: Normal (Client is for discharge to In patient psychiatr when nedically cleared, SConferred with dr Chowdary. Client is impulsive, unsafeClient to remain on restriction, plan\2 pc to inpatient psychiatry.)
[2019-05-11] MEDS: LORazepam 2 MG/ML SDV VIAL IVPUSH PRN ×2 (13:15→17:15)
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
--- NOTE | 2019-05-11 14:35 | EKG ---
Test Reason : Blood Pressure : / mmHG Vent. Rate : 080 BPM Atrial Rate : 080 BPM P-R Int : 118 ms QRS Dur : 080 ms QT Int : 390 ms P-R-T Axes : 071 067 048 degrees QTc Int : 449 ms NORMAL SINUS RHYTHM MINIMAL VOLTAGE CRITERIA FOR LVH, MAY BE NORMAL VARIANT BORDERLINE ECG WHEN COMPARED WITH ECG OF 08-MAY-2019 08:58, QT HAS SHORTENED Confirmed by KAVEH MARTINO, RADHA ([id number]) on 05/11/2019 2:35:41 PM Referred By: Confirmed By:RADHA LINN MD
[2019-05-12] MEDS: LORazepam 2 MG/ML SDV VIAL IVPUSH PRN ×2 (01:25→05:59)
[2019-05-12] MEDS: AMOX TR/POT CLAV 500MG/125MG TABLETS (FP) PO SCH ×2 (08:53→17:14)
[2019-05-12] MEDS: THIAMINE HCL 100 MG TABLET (FP) PO SCH ×2 (09:21→21:46)
[2019-05-12] MEDS: PANTOPRAZOLE 40 MG TABLET (FP) PO SCH ×2 (09:21→21:46)
[2019-05-12] MEDS: LORazepam 1 MG TABLET PO PRN (09:52)
[2019-05-12 10:52] LABS: ALBUMIN 2.9 g/dl (3.4-5.0); BILIRUBIN,TOTAL 0.2 mg/dL (0.2-1); BLOOD UREA NITROGEN 8.4 mg/dL (7-18); CALCIUM 8.9 mg/dL (8.5-10.1); POTASSIUM 4.4 mmol/L (3.5-5.1)
[2019-05-12] MEDS ORDERED: LORazepam 2 MG/ML SDV VIAL IM ONE ×2 (11:29→16:03)
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
[2019-05-12] MEDS ORDERED: LORazepam 2 MG/ML SDV VIAL IVPUSH PRN (15:18)
--- NOTE | 2019-05-12 17:29 | PN ---
Progress Note (short form) - Note Progress Note: client extremly agitated today. Consider re starting haldol. cpk within normal. will offer Haldol 5 mg po prn for anxiety with ordered ativan.
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
[2019-05-13] MEDS ORDERED: PT OWN MED DRAWER 7, Y5N ONE (08:27)
[2019-05-13] MEDS: AMOX TR/POT CLAV 500MG/125MG TABLETS (FP) PO SCH ×2 (08:50→17:01)
[2019-05-13] MEDS: LORazepam 2 MG/ML SDV VIAL IM PRN ×3 (08:50→21:22)
[2019-05-13] MEDS: HALOPERIDOL 5 MG TABLET (FP) PO PRN ×2 (08:50→21:23)
[2019-05-13] MEDS: THIAMINE HCL 100 MG TABLET (FP) PO SCH ×2 (10:45→21:23)
[2019-05-13] MEDS: PANTOPRAZOLE 40 MG TABLET (FP) PO SCH ×2 (10:45→21:23)
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
[2019-05-14] MEDS: MULTIVITAMINS (DAILY MVI) TABLET (FP) PO SCH (11:14)
[2019-05-14] MEDS ORDERED: PT OWN MED DRAWER 7, Y5N ONE (13:13)
[2019-05-14] MEDS: LORazepam 2 MG/ML SDV VIAL IM PRN (14:42)
[2019-05-14] MEDS: HALOPERIDOL 5 MG TABLET (FP) PO PRN (14:43)
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
[2019-05-15 00:18] VITALS: BP 100/61; PULSE 90; TEMP 98
[2019-05-15] MEDS: LORazepam 2 MG/ML SDV VIAL IM PRN (00:33)
[2019-05-15] MEDS: HALOPERIDOL 5 MG TABLET (FP) PO PRN (00:33)
[2019-05-15] MEDS: MULTIVITAMINS (DAILY MVI) TABLET (FP) PO SCH (10:19)
--- NOTE | 2019-05-15 11:17 | PN ---
Progress Note (short form) - Note Progress Note: PaTIENT SEEN AND case discussed with staff. Patients Mental status has improved significantly. Not displaying any acute anger, Hostility or suicidlal or Homicidal ideations or Behaviour. Very pleasant and cooperative, denies any suicidal ideas. good eye contact. Plan; 1) d/c 1:1. 2) will follow up at [facility], his therapist Vita Chavez. 3) Discharge today.
--- NOTE | 2019-05-15 11:46 | DS ---
Physical Exam: SUBJECTIVE: Patient seen and examined OBJECTIVE: Vital Signs Period Temp Pulse Resp BP Sys/Neff Pulse Ox Last 24 Hr 98 F-98.4 F 90-100 18-20 96-103/59-67 PHYSICAL EXAM GENERAL: The patient is awake, alert, and fully oriented, in no acute distress. HEAD: Normal with no signs of trauma. EYES: PERRL, extraocular movements intact, sclera anicteric, conjunctiva clear. ENT: Ears normal, nares patent, oropharynx clear without exudates, moist mucous membranes. NECK: Trachea midline, full range of motion, supple. LUNGS: Breath sounds equal, clear to auscultation bilaterally, no wheezes, no crackles, no accessory muscle use. HEART: Regular rate and rhythm, S1, S2 without murmur, rub or gallop. ABDOMEN: Soft, nontender, nondistended, normoactive bowel sounds, no guarding, no rebound, no hepatosplenomegaly, no masses. EXTREMITIES: 2+ pulses, warm, well-perfused, no edema. NEUROLOGICAL: Cranial nerves II through XII grossly intact. Normal speech, gait not observed. PSYCH: Normal mood, normal affect. SKIN: Warm, dry, normal turgor, no rashes or lesions noted. LABS HOSPITAL COURSE: Date of Admission:05/06/19 Date of Discharge: 05/15/19 Course: OD on benadryl and haldol began vomiting in ED, desat to 80s, intubated icu ventilated and sedated tried to extubate but was agitated next day was extubated Discharge Summary Problems reviewed: Yes Reason For Visit: DRUG OVERDOSE,SUICIDAL BEHAVIOR, Current Active Problems Overdose (Acute) Polysubstance abuse (Acute) Suicidal behavior (Acute) UTI (urinary tract infection) (Acute) Condition: Stable - Instructions Diet, Activity, Other Instructions: Hospital Visit: You were admitted to the hospital because you had a drug overdose and had difficulty breathing. You were found to have an infection in your left lung. You were treated with antibiotics and are improved medically. You were evaluated by a psychiatrist and were given medications which helped with your mood. You are now deemed stable for discharge home by psychiatry. Labs and follow up: Your TSH (thyroid) levels were high. You should follow up with your primary care doctor in the next month to have the levels checked again. You may need medication if it is still high. Your hemoglobin (red blood cells) was low as well. This lab should be checked at the same time. Medications: You are not being given any medications at discharge. Follow up at [facility] as soon as possible for medications. Other instructions: PLEASE AVOID USING ILLICIT SUBSTANCES! PLEASE ONLY TAKE YOUR MEDICATIONS PRESCRIBED! Return to the emergency room if you have thoughts of harming yourself, hearing or seeing things that are not there, chest pain, palpitations, abdominal pain, severe headache or dizziness, or extreme vomiting or diarrhea. If you need any assistance, call the Suicide Hotline at 9(129) EPMWOTV or 5(547 ) 428-2627. Disposition: HOME - Discharge Referral Referred to [facility] No ATTENDING PHYSICIAN STATEMENT I saw and evaluated the patient. I reviewed the resident's note and discussed the case with the resident. I agree with the resident's findings and plan as documented. SUBJECTIVE: OBJECTIVE: ASSESSMENT AND PLAN:
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
--- NOTE | 2019-05-15 16:16 | EKG ---
Test Reason : Blood Pressure : / mmHG Vent. Rate : 099 BPM Atrial Rate : 099 BPM P-R Int : 126 ms QRS Dur : 084 ms QT Int : 342 ms P-R-T Axes : 075 053 057 degrees QTc Int : 438 ms NORMAL SINUS RHYTHM MODERATE VOLTAGE CRITERIA FOR LVH, MAY BE NORMAL VARIANT BORDERLINE ECG WHEN COMPARED WITH ECG OF 11-MAY-2019 06:10, NO SIGNIFICANT CHANGE WAS FOUND Confirmed by ROMAN FLORES MD ([id number]) on 05/15/2019 4:15:51 PM Referred By: NUHA ZHU Confirmed By:ROMAN FLORES MD
== END 2019-05-15 14:30 | disposition home or self-care (01) | DRG 351 ==
LOC: JER 20:49 → JERBED 22:41 → JICU 05-07 02:28 → J8W 05-09 20:13
PROVIDERS: ADMIT Internal Medicine; ATTEND Internal Medicine
PROC: 5A1935Z Respiratory Ventilation, Less than 24 Consecutive Hours (ICD-10-PCS; principal; 2019-05-06)
PROC: 0BH17EZ Insertion of Endotracheal Airway into Trachea, Via Natural or Artificial Opening (ICD-10-PCS; 2019-05-06)
PROC: 0T25X0Z Change Drainage Device in Kidney, External Approach (ICD-10-PCS; 2019-05-11)
DX: T14.91XA Suicide attempt, initial encounter (principal); T43.4X2A Poisoning by butyrophenone and thiothixene neuroleptics, intentional self-harm, initial encounter; N39.0 Urinary tract infection, site not specified; E16.2 Hypoglycemia, unspecified; D64.9 Anemia, unspecified; D72.829 Elevated white blood cell count, unspecified; T45.0X2A Poisoning by antiallergic and antiemetic drugs, intentional self-harm, initial encounter; E87.2 Acidosis; G82.20 Paraplegia, unspecified; J96.12 Chronic respiratory failure with hypercapnia; J96.02 Acute respiratory failure with hypercapnia; J96.01 Acute respiratory failure with hypoxia; A41.9 Sepsis, unspecified organism; J69.0 Pneumonitis due to inhalation of food and vomit; T42.4X2A Poisoning by benzodiazepines, intentional self-harm, initial encounter; Y92.89 Other specified places as the place of occurrence of the external cause; E87.6 Hypokalemia; F23 Brief psychotic disorder; R64 Cachexia; Z68.20 Body mass index [BMI] 20.0-20.9, adult; F17.210 Nicotine dependence, cigarettes, uncomplicated
CPT/HCPCS: 36415; 36600; 50435; 70450-TC; 71045-TC-FY; 76775-TC; 80048; 80053; 80307; 81003; 82550; 82553; 82803; 82962; 83605; 83735; 84100; 84439; 84443; 84481; 85025; 85610; 86850; 86900; 86901; 87040; 87070; 87086; 87205; 87899; 93005; 93010; 94002; 99285-25; J7030

== ENCOUNTER 2020-01-16 14:08 | Emergency (ER) | payer OTHER ==
[2020-01-16 14:14] VITALS: BP 113/72; PULSE 89; BMI 18.2
[2020-01-16 14:15] VITALS: TEMP 98.4
[2020-01-16 15:14] LABS: BASO % 0.6 % (0-2.0); EOS % 1.7 % (0-4.5); HEMOGLOBIN 12.5 GM/dL (11.7-16.9); LYMPH % 31.2 % (8-40); MCH 28.9 pg (25.7-33.7); MCHC 32.8 g/dl (32.0-35.9); MEAN CELL VOLUME 87.9 fl (80-96); MEAN PLT VOLUME 7.9 fl (7.5-11.1); MONO % 13.1 % (3.8-10.2); NEUT % 53.4 % (42.8-82.8); PLATELET COUNT 460 K/MM3 (134-434); RBC 4.32 M/mm3 (4.00-5.60); RDW 19.3 % (11.9-15.9); WHITE BLOOD COUNT 7.9 K/mm3 (4.0-10.0)
[2020-01-16 15:47] LABS: ALBUMIN 3.7 g/dl (3.4-5.0); BILIRUBIN,TOTAL 0.4 mg/dL (0.2-1); CALCIUM 9.6 mg/dL (8.5-10.1); CREATININE 1.1 mg/dL (0.55-1.3); TOT PROT 8.4 g/dl (6.4-8.2)
[2020-01-16 17:23] LABS: PH,URINE 5.5 (5.0-8.0); URINE APPEARANCE CLEAR; URINE BILIRUBIN NEGATIVE (NEGATIVE); URINE COLOR DK YELLOW; URINE GLUCOSE (UA) NEGATIVE (NEGATIVE); URINE KETONE TRACE (NEGATIVE); URINE LEUK ESTERASE NEGATIVE (NEGATIVE); URINE NITRITE NEGATIVE (NEGATIVE); URINE PROTEIN TRACE (NEGATIVE)
== END 2020-01-16 17:43 | disposition home or self-care (01) ==
LOC: JER 14:08
DX: R10.9 Unspecified abdominal pain (principal)
CPT/HCPCS: 36415; 80053; 81003; 83690; 85025; 99284-25

== ENCOUNTER 2021-03-17 14:30 | Emergency (ER) | payer OTHER ==
[2021-03-17 14:54] VITALS: BP 116/77; PULSE 97; TEMP 98.3; BMI 16.0
== END 2021-03-17 17:10 | disposition left against medical advice (07) ==
LOC: JER 14:30
DX: Z59.0 Homelessness (principal)
CPT/HCPCS: 99281-25

== ENCOUNTER 2021-12-29 16:53 | Emergency (ER) | payer OTHER ==
[2021-12-29 17:31] VITALS: BP 147/89; PULSE 114; TEMP 98.7; BMI 18.2
== END 2021-12-29 19:15 | disposition home or self-care (01) ==
LOC: JER 16:53
DX: T73.0XXA Starvation, initial encounter (principal)
CPT/HCPCS: 99282-25